=== PATIENT | male | born 1970 | race African-American/Black ===

== ENCOUNTER 2017-03-18 07:26 | Emergency (ER) | payer SELFPAY ==
[~2017-03-18] VITALS: Ht 180.3 cm; Wt 60.0 kg
[~2017-03-18 07:26] MED LIST: CEPH-460 PO; HYDR-2376 PO; IBUP800T23 PO; PERI0.126 SWISH-SPIT
[2017-03-18 07:31] VITALS: BP 110/81; PULSE 84; RESP 16; TEMP 98.4; O2SAT 99
[2017-03-18 07:37] VITALS: BP 109/74; PULSE 73; RESP 16; O2SAT 98
--- NOTE | 2017-03-18 07:39 | PD ---
HPI Chief Complaint: Abdominal Pain Time Seen by Provider: 07:31 Travel History International Travel<30 days: No Contact w/Intl Traveler<30days: No Traveled to known affect area: No History of Present Illness HPI This is a 46-year-old male who presents to the emergency department with 1 week of abdominal discomfort and diarrhea. He describes cramping in his lower abdomen, constant, moderate severity associated with copious diarrhea, more than he can count. He says he's had some dark blood mixed in with his stools. He denies any fevers or chills. He feels like he's lost weight. He feels like he can't eat anything and has no appetite. This is never happened to him before. He denies any history of abdominal surgeries, he does drink 3-4 beers a day but denies any IV drug use. He denies any recent antibiotic use or travel. PFSH Past Medical History Cancer: No Cardiovascular Problems: No Diminished Hearing: No Endocrine: No Genitourinary: No Musculoskeletal: No Neurologic: No Respiratory: No Social History Alcohol Use: Yes (OCCASIONALLY) Tobacco Use: Yes (1/2 PACK) Substance Use: No Allergies-Medications (Allergen,Severity, Reaction): Coded Allergies: No Known Allergies (Unverified , 03/18/17) Reported Meds & Prescriptions Reported Meds & Active Scripts Active No Active Prescriptions or Reported Medications Review of Systems Except as stated in HPI: all other systems reviewed are Neg Physical Exam Narrative GENERAL: Cachectic appearing with temporal wasting SKIN: Focused skin assessment warm and dry. HEAD: Atraumatic. Normocephalic. EYES: Pupils equal and round. No injection or drainage. ENT: Moist mucous membranes NECK: Trachea midline. CARDIOVASCULAR: Regular rate and rhythm. No murmur appreciated. RESPIRATORY: Clear to auscultation. Breath sounds equal bilaterally. GASTROINTESTINAL: Abdomen soft, tender to palpation in the lower abdomen with no rebound or guarding. MUSCULOSKELETAL: No obvious deformities. NEUROLOGICAL: Awake and alert. No obvious cranial nerve deficits. Moving all extremities. PSYCHIATRIC: Appropriate mood and affect; insight and judgment normal. Data Data Last Documented VS Vital Signs Date Time Temp Pulse Resp B/P Pulse Ox O2 Delivery O2 Flow Rate FiO2 03/18/17 09:49 16 03/18/17 07:37 73 109/74 98 Room Air 03/18/17 07:31 98.4 Orders Complete Blood Count With Diff (03/18/17 07:36) Comprehensive Metabolic Panel (03/18/17 07:36) Lipase (03/18/17 07:36) ^ Insert Iv (03/18/17 07:36) Morphine Inj (Morphine Inj) (03/18/17 07:45) Ondansetron Inj (Zofran Inj) (03/18/17 07:45) Sodium Chlor 0.9% 1000 Ml Inj (Ns 1000 M (03/18/17 07:45) Oral Contrast - Adult (03/18/17 07:43) Oral Contrast - Adult (03/18/17 08:38) Urinalysis - C+S If Indicated (03/18/17 08:46) Diet Regular Basic (03/18/17 Breakfast) Diatrizoate Liq ( Gastroview Liq) (03/18/17 09:52) Iohexol 350 Inj (Omnipaque 350 Inj) (03/18/17 11:35) Ct Abd/Pel W Iv Contrast(Rout) (03/18/17 ) Labs Laboratory Tests Test 03/18/17 08:05 White Blood Count 4.7 TH/MM3 Red Blood Count 4.11 MIL/MM3 Hemoglobin 14.1 GM/DL Hematocrit 40.1 % Mean Corpuscular Volume 97.6 FL Mean Corpuscular Hemoglobin 34.3 PG Mean Corpuscular Hemoglobin 35.1 % Concent Red Cell Distribution Width 14.1 % Platelet Count 217 TH/MM3 Mean Platelet Volume 9.4 FL Neutrophils (%) (Auto) 56.6 % Lymphocytes (%) (Auto) 17.3 % Monocytes (%) (Auto) 24.3 % Eosinophils (%) (Auto) 1.4 % Basophils (%) (Auto) 0.4 % Neutrophils # (Auto) 2.6 TH/MM3 Lymphocytes # (Auto) 0.8 TH/MM3 Monocytes # (Auto) 1.1 TH/MM3 Eosinophils # (Auto) 0.1 TH/MM3 Basophils # (Auto) 0.0 TH/MM3 CBC Comment DIFF FINAL Differential Comment Sodium Level 137 MEQ/L Potassium Level 4.0 MEQ/L Chloride Level 100 MEQ/L Carbon Dioxide Level 29.1 MEQ/L Anion Gap 8 MEQ/L Blood Urea Nitrogen 9 MG/DL Creatinine 0.85 MG/DL Estimat Glomerular Filtration 117 ML/MIN Rate Random Glucose 89 MG/DL Calcium Level 9.3 MG/DL Total Bilirubin 0.8 MG/DL Aspartate Amino Transf 112 U/L (AST/SGOT) Alanine Aminotransferase 62 U/L (ALT/SGPT) Alkaline Phosphatase 232 U/L Total Protein 8.4 GM/DL Albumin 3.2 GM/DL Lipase 481 U/L MDM Medical Decision Making Medical Screen Exam Complete: Yes Emergency Medical Condition: Yes Interpretation(s) No leukocytosis Electrolytes are reassuring Lipase is 41 Urinalysis: No infection CT abdomen and pelvis: No acute process Differential Diagnosis Diarrhea, colitis, gastroenteritis, electrolyte abnormality, dehydration Narrative Course This is a 46-year-old male who presents to the emergency department with abdominal discomfort and bloody diarrhea. Labs were obtained which were all reassuring. CT abdomen and pelvis is unremarkable. Patient appears well and I think is appropriate for outpatient follow-up with his primary care physician. He was given some IV hydration in the emergency department. Patient will be discharged Diagnosis Primary Impression: Bloody diarrhea Patient Instructions: General Instructions Additional Instructions: If you develop lightheadedness, dizziness, persistent vomiting, inability to eat , or severe abdominal pain return to the emergency department. Followup with your primary care physician in 2-3 days if your symptoms have not resolved. Wash your hands agressively after using the restroom as to not spread your illness to others. Do not return to work until your symptoms have resolved. Take Zofran as needed for nausea. Med/Other Pt SpecificInfo: Prescription(s) given Scripts Ondansetron Odt (Zofran Odt)4 Mg Tab4 Mg SL Q6HR PRN (Nausea/Vomiting) #15 TAB Prov:Leonarda Madsen MD 03/18/17 Disposition: 01 DISCHARGE HOME Condition: Stable Leonarda Madsen MD Mar 18, 2017 07:39
[2017-03-18] MEDS ORDERED: MORPHINE SULFATE 4 MG/ML INJ IV PUSH ONE (07:45)
[2017-03-18] MEDS ORDERED: ONDANSETRON HCL 4 MG/2 ML VIAL IV PUSH ONE (07:45)
[2017-03-18] MEDS ORDERED: SODIUM CHLOR 0.9% 1000 ML INJ 1,000 ML IV ONE (07:45)
[2017-03-18 08:17] LABS: AUTOMATED NEUTROPHIL # 2.6 TH/MM3 (1.8-7.7); BASOPHIL % 0.4 % (0.0-2.0); EOSINOPHIL # 0.1 TH/MM3 (0-0.4); EOSINOPHIL % 1.4 % (0.0-4.0); HEMATOCRIT 40.1 % (39.0-51.0); HEMO FLAGS DIFF FINAL; LYMPH % 17.3 % (9.0-44.0); LYMPHOCYTE # 0.8 TH/MM3 (1.0-4.8); MEAN CELL VOLUME 97.6 FL (80.0-100.0); MEAN CORPUSCULAR HEMOGLOBIN 34.3 PG (27.0-34.0); MEAN CORPUSCULAR HGB CONC 35.1 % (32.0-36.0); MONO % 24.3 % (0.0-8.0); NEUT % 56.6 % (16.0-70.0); PLATELET COUNT 217 TH/MM3 (150-450); RED BLOOD COUNT 4.11 MIL/MM3 (4.50-5.90); RED CELL DISTRIBUTION WIDTH 14.1 % (11.6-17.2); WHITE BLOOD COUNT 4.7 TH/MM3 (4.0-11.0)
[2017-03-18 08:35] LABS: ALT (GPT) 62 U/L (12-78); ANION GAP 8 MEQ/L (5-15); AST (GOT) 112 U/L (15-37); BICARBONATE 29.1 MEQ/L (21.0-32.0); BLOOD UREA NITROGEN 9 MG/DL (7-18); CHLORIDE 100 MEQ/L (98-107); GLOMERULAR FILTRATION RATE 117 ML/MIN (>89); SODIUM (NA) 137 MEQ/L (136-145)
[2017-03-18 08:36] LABS: ALKALINE PHOSPHATASE 232 U/L (45-117); TOTAL BILIRUBIN ADULT 0.8 MG/DL (0.2-1.0)
[2017-03-18 09:49] VITALS: RESP 16
[2017-03-18] MEDS ORDERED: DIATRIZOATE MEGLUM/DIATRIZOATE SOD 9 ML CUP ONE (09:52)
[2017-03-18] MEDS ORDERED: IOHEXOL 350 MG/ML 10 ML VIAL (for RAD DIAG) IV ONE (11:35)
--- NOTE | 2017-03-18 11:58 | RADRPT ---
EXAM DATE/TIME: 03/18/2017 11:43 [facility] COMPARISON: CT ABDOMEN & PELVIS W CONTRAST, March 18, 2017, 11:24. INDICATIONS : Abdominal pain for one week with blood diarrhea. IV CONTRAST: 94 cc Omnipaque 350 (iohexol) IV ORAL CONTRAST: Prescribed oral contrast ingested. RADIATION DOSE: 9.96 CTDIvol (mGy) MEDICAL HISTORY : None SURGICAL HISTORY : None. ENCOUNTER: Initial ACUITY: 1 day PAIN SCALE: 0/10 LOCATION: Bilateral abdomen TECHNIQUE: Volumetric scanning of the abdomen and pelvis was performed. Using automated exposure control and ad justment of the mA and/or kV according to patient size, radiation dose was kept as low as reasonably achievable to obtain optimal diagnostic quality images. FINDINGS: LOWER LUNGS: The visualized lower lungs are clear. LIVER: 2 small hypodensities, both measuring a centimeter or less are identified in the liver. More anterior lesion in the left hepatic lobe is probably a cyst. A 1 cm lesion in the hepatic dome may represent a cyst or hemangioma. There is no dilation of the biliary tree. No calcified gallstones. SPLEEN: Normal size without lesion. PANCREAS: Within normal limits. KIDNEYS: Normal in size and shape. There is no mass, stone or hydronephrosis. ADRENAL GLANDS: Within normal limits. VASCULAR: There is no aortic aneurysm. BOWEL/MESENTERY: The stomach, small bowel, and colon demonstrate no acute abnormality. There is no free intraperitone al air or fluid. Small amount of free fluid in the deep right pelvis of uncertain etiology. The appen zandra is not well identified due to the lack of intraperitoneal fat. No obvious inflammatory changes, h owever. ABDOMINAL WALL: Within normal limits. RETROPERITONEUM: There is no lymphadenopathy. BLADDER: No wall thickening or mass. REPRODUCTIVE: Within normal limits. INGUINAL: There is no lymphadenopathy or hernia. MUSCULOSKELETAL: Within normal limits for patient age. CONCLUSION: 1. Small cysts or hemangiomas in the liver. One is identified in the right hepatic lobe and one in th e left hepatic lobe. 2. Small amount of free fluid in the deep right pelvis of uncertain etiology. Otherwise negative. Alexis Olivo MD on March 18, 2017 at 11:50 Board Certified Radiologist. This report was verified electronically.
[2017-03-18 12:09] LABS: BLOOD, URINE TRACE (NEG); COMMENT (UR) CULT NOT INDICATED; CULTURE IF INDICATED CULT NOT INDICATED; GLUCOSE,URINE NEG (NEG); KETONE, URINE 40 mg/dL (NEG); MUCUS URINE MOD /lpf (OCC); NITRITE,URINE NEG (NEG); SQUAMOUS EPITHELIAL CELL URINE 1 /hpf (0-5); URINE COLOR YELLOW (YELLW/STRAW)
[2017-03-18] MEDS ORDERED: ZOFR4TAB3 SL (12:10)
== END 2017-03-18 12:31 | disposition home or self-care (01) ==
LOC: NEPC 07:26
DX: R19.7 Diarrhea, unspecified (principal); R64 Cachexia; F17.200 Nicotine dependence, unspecified, uncomplicated
CPT/HCPCS: 74177; 80053; 81001; 83690; 85025; 96361; 96374; 96375; 99285; J2270; J2405; J7030; Q9963; Q9967